=== PATIENT | male | born 1990 | race Caucasian/White ===

== ENCOUNTER 2022-04-22 11:31 | Emergency (ER) | payer OTHER ==
[~2022-04-22] VITALS: Ht 167.6 cm; Wt 77.1 kg
[2022-04-22 11:49] VITALS: BP 111/65
--- NOTE | 2022-04-22 12:09 | NUR ---
PATIENT LEFT WITHOUT BEING SEEN BY DR. SHAW. NO FURTHER CARE PROVIDED FOR PATIENT.
== END 2022-04-22 12:09 | disposition left against medical advice (07) ==
LOC: MED 11:31
DX: U07.1 COVID-19 (principal); Z53.21 Procedure and treatment not carried out due to patient leaving prior to being seen by health care provider

== ENCOUNTER 2022-06-27 14:26 | Emergency (ER) | payer OTHER ==
[~2022-06-27] VITALS: Ht 177.8 cm; Wt 92.5 kg
[2022-06-27 14:29] VITALS: BP 143/79
--- NOTE | 2022-06-27 14:40 | NUR ---
C/O COUGH X YESTERDAY AND 7/10 BODY ACHE 1MONTH. COVID TESTED NEGATIVE 3 DAYS AGO. PMH: SCHIZOPHRENIA PMH: DENIES
[2022-06-27] MEDS ORDERED: IBUP-2213 PO (15:09)
[2022-06-27] MEDS ORDERED: PROM118S5 PO (15:09)
[2022-06-27 15:15] VITALS: BP 143/79
--- NOTE | 2022-06-27 15:15 | NUR ---
Patient discharged with v/s stable. Written and verbal after care instructions given and explained. Patient alert, oriented and verbalized understanding of instructions. Ambulatory with steady gait. All questions addressed prior to discharge. ID band removed. Patient advised to follow up with PMD. Rx of IBUPROFEN,PROMETHAZINE given. Patient educated on indication of medication including possible reaction and side effects. Opportunity to ask questions provided and answered.
== END 2022-06-27 15:15 | disposition home or self-care (01) ==
LOC: MED 14:26
DX: J06.9 Acute upper respiratory infection, unspecified (principal); F20.9 Schizophrenia, unspecified; Z79.899 Other long term (current) drug therapy
CPT/HCPCS: 99283

== ENCOUNTER 2022-07-06 13:25 | Emergency (ER) | payer OTHER ==
[~2022-07-06] VITALS: Ht 177.8 cm; Wt 91.4 kg
[~2022-07-06 13:25] MED LIST: IBUP-2213 PO; PROM118S5 PO
[2022-07-06 13:27] VITALS: BP 142/96
--- NOTE | 2022-07-06 13:32 | NUR ---
PT AMB TO BED 9
[2022-07-06] MEDS ORDERED: ONDA-188 PO (13:52)
[2022-07-06] MEDS ORDERED: PROM118S5 PO (13:52)
[2022-07-06] MEDS ORDERED: IBUP-2213 PO (13:52)
--- NOTE | 2022-07-06 14:00 | NUR ---
32/m walked in C/O COUGH , SORE THROAT X YESTERDAY. AFEBRILE AT TRIAGE. PMH: SCHIZOPHRENIA
--- NOTE | 2022-07-06 14:05 | NUR ---
Patient discharged with v/s stable. Written and verbal after care instructions given and explained. Patient alert, oriented and verbalized understanding of instructions. with steady gait. All questions addressed prior to discharge. ID band removed. Patient advised to follow up with PMD. Rx given. Patient educated on indication of medication including possible reaction and side effects. Opportunity to ask questions provided and answered.
== END 2022-07-06 14:05 | disposition home or self-care (01) ==
LOC: MED 13:25
DX: J06.9 Acute upper respiratory infection, unspecified (principal); Z20.822 Contact with and (suspected) exposure to COVID-19; F20.9 Schizophrenia, unspecified; Z79.899 Other long term (current) drug therapy; Z79.1 Long term (current) use of non-steroidal anti-inflammatories (NSAID)
CPT/HCPCS: 99283

== ENCOUNTER 2022-07-17 15:24 | Emergency (ER) | payer OTHER ==
[~2022-07-17] VITALS: Ht 170.2 cm; Wt 92.1 kg
[~2022-07-17 15:24] MED LIST changes: +ONDA-188 PO
[2022-07-17 16:01] VITALS: BP 134/88
[2022-07-17 18:17] LABS: BASOPHILS # (AUTO) 0.1 K/uL (0.00-0.22); BASOPHILS % (AUTO) 0.4 % (0.0-2.0); EOSINOPHILS # (AUTO) 0.1 K/uL (0-0.4); EOSINOPHILS % (AUTO) 0.7 % (0.0-4.0); HEMATOCRIT 44.4 % (36-52); HEMOGLOBIN 15.2 g/dL (12.0-18.0); LYMPHOCYTES # (AUTO) 2.3 K/uL (2.0-11.5); LYMPHOCYTES % (AUTO) 19.4 % (20.5-51.1); MEAN CORPUSCULAR HEMOGLOBIN 31 pg (27-31); MEAN CORPUSCULAR HGB CONC 34 g/dL (33-37); MEAN CORPUSCULAR VOLUME 91.3 fL (80-94); MONOCYTES % (AUTO) 8.1 % (1.7-9.3); NEUTROPHILS # (AUTO) 8.5 K/uL (1.8-7.7); NEUTROPHILS % (AUTO) 71.4 % (42.2-75.2); PLATELET COUNT (AUTO) 271 K/uL (140-450); RED BLOOD CELL COUNT(AUTO) 4.86 MIL/uL (4.20-6.10); WHITE BLOOD COUNT (AUTO) 11.9 K/uL (4.8-10.8)
[2022-07-17 18:36] LABS: ALBUMIN 4.4 g/dL (3.4-5.0); ANION GAP 11.6 (8-16); POTASSIUM 3.6 mmol/L (3.5-5.1); TOTAL BILIRUBIN 0.6 mg/dL (0.0-1.0)
[2022-07-17] MEDS ORDERED: IBUP-2213 PO (19:44)
[2022-07-17] MEDS ORDERED: DEXT5SYR3 PO (19:44)
[2022-07-17 19:46] LABS: APPEARANCE,URINE CLEAR (CLEAR); BILIRUBIN,URINE NEGATIVE (NEGATIVE); BLOOD, URINE NEGATIVE (NEGATIVE); COLOR,URINE YELLOW (YELLOW); LEUKOCYTE ESTERASE ,URINE 2+ (NEGATIVE); NITRITE, URINE NEGATIVE (NEGATIVE); UGLUCOSE NEGATIVE (NEGATIVE)
[2022-07-17] MEDS ORDERED: cefTRIAXone 1,000 MG in LIDOCAINE MPF 1% 2.1 ML IM ONE (19:50)
[2022-07-17] MEDS ORDERED: CIPR500T4 PO (19:54)
[2022-07-17] MEDS ORDERED: KETOROLAC 30 MG/ML VIAL IM ONE (20:05)
[2022-07-17] MEDS ORDERED: cefTRIAXone 1,000 MG VIAL ONE (20:06)
[2022-07-17] MEDS ORDERED: LIDOCAINE MPF 1% 5 ML ONE (20:06)
--- NOTE | 2022-07-17 20:20 | NUR ---
Patient discharged with v/s stable. Written and verbal after care instructions given and explained. Patient alert, oriented and verbalized understanding of instructions. Ambulatory with steady gait. All questions addressed prior to discharge. ID band removed. Patient advised to follow up with PMD. Rx of CIPRO, MOTRIN, AND GUAIFENESIN given. Patient educated on indication of medication including possible reaction and side effects. Opportunity to ask questions provided and answered.
== END 2022-07-17 20:20 | disposition home or self-care (01) ==
LOC: MED 15:24
DX: N12 Tubulo-interstitial nephritis, not specified as acute or chronic (principal); J06.9 Acute upper respiratory infection, unspecified; K46.9 Unspecified abdominal hernia without obstruction or gangrene; N28.89 Other specified disorders of kidney and ureter; Z79.899 Other long term (current) drug therapy
CPT/HCPCS: 36415; 71045; 74176; 80053; 81001; 83605; 85025; 87040; 87086; 96372; 99285; J0696; J1885; J2001